=== PATIENT | male | born 1965 | race Two or more races ===

== ENCOUNTER 2022-12-02 11:33 | Outpatient (CLI) | payer OTHER | END 2022-12-02 11:38 | disposition home or self-care (01) | LOC: SONOGRAMA 11:33 | PROVIDERS: ATTEND Specialist | DX: D17.1 Benign lipomatous neoplasm of skin and subcutaneous tissue of trunk (principal) ==

== ENCOUNTER 2022-12-09 06:00 | Day surgery (SDC) | payer OTHER ==
[~2022-12-09] VITALS: Ht 162.6 cm; Wt 100.7 kg
[~2022-12-09 06:00] MED LIST: COZAAR25 MG PO
== END 2022-12-09 13:35 | disposition home or self-care (01) ==
LOC: CIR.AMB 06:00
PROVIDERS: ATTEND Specialist
DX: D17.1 Benign lipomatous neoplasm of skin and subcutaneous tissue of trunk (principal); I10 Essential (primary) hypertension; E66.09 Other obesity due to excess calories; Z20.822 Contact with and (suspected) exposure to COVID-19

== ENCOUNTER 2023-01-03 11:15 | Outpatient (CLI) | payer OTHER | END 2023-01-03 11:25 | disposition home or self-care (01) | LOC: RAD 11:15 | PROVIDERS: ATTEND Specialist | DX: J01.31 Acute recurrent sphenoidal sinusitis (principal); J42 Unspecified chronic bronchitis ==